=== PATIENT | female | born 1965 | race Caucasian/White ===

== ENCOUNTER → 2016-07-05 | Outpatient (CLI) | payer BC | LOC: LAB 17:35 | DX: G47.00 Insomnia, unspecified (principal); F32.9 Major depressive disorder, single episode, unspecified; R60.0 Localized edema ==

== ENCOUNTER → 2016-07-31 | Outpatient (CLI) | payer BC | LOC: LAB 12:34 | DX: E61.1 Iron deficiency (principal); M62.81 Muscle weakness (generalized); M19.90 Unspecified osteoarthritis, unspecified site ==